=== PATIENT | female | born 1995 | race African-American/Black ===

== ENCOUNTER 2017-10-06 10:46 | Emergency (ER) | payer OTHER ==
[2017-10-06 11:43] LABS: Bilirubin Small (Negative); Blood, Urine Negative (Negative); Clarity CLEAR (Clear); Glucose, Urine (Dipstick) Negative (Negative); Leukocyte Negative (Negative); Nitrite Negative (Negative); Protein, Urine (Dipstick) Trace mg/dL (Neg-Trace); Specific Gravity, Urine 1.029 (1.002-1.036); Urobilinogen 0.2 mg/dL (0.2-1.0); pH, Urine 5.5 (5.0-9.0)
[2017-10-06 12:04] LABS: ALT (SGPT) 7 U/L (8-55); AST (SGOT) 12 U/L (5-34); Albumin 4.6 g/dL (3.5-5.0); Alkaline Phosphatase 49 U/L (40-150); Anion Gap 13 mmol/L (10-20); BUN (Urea Nitrogen) 9 mg/dL (7.0-18.7); Bilirubin, Total 0.5 mg/dL (0.2-1.2); Calc. Creatinine Clearance 0 mL/min (70-130); Calcium 9.8 mg/dL (7.8-10.44); Carbon Dioxide 23 mmol/L (22-29); Chloride 104 mmol/L (98-107); Estimated GFR-MDRD 89; Globulin 3.4 g/dL (2.4-3.5); Glucose 78 mg/dL (70-105); Lipase 12 U/L (8-78); Potassium 3.5 mmol/L (3.5-5.1); Sodium 136 mmol/L (136-145)
[2017-10-06 12:11] LABS: #Lymphocytes 1.9 thou/uL (1.20-3.40); #Monocytes 0.3 thou/uL (0.11-0.59); #Neutrophils 1.7 thou/uL (1.40-6.50); %Basophils 0.7 % (0.0-1.0); %Eosinophils 0.6 % (0.0-10.0); %Lymphocytes 48.2 % (28.0-48.0); %Monocytes 6.6 % (0.0-4.0); %Neutrophils 43.9 % (31.0-61.0); Hemoglobin 14.6 g/dL (12.0-16.0); Mean Corpuscular HGB CONC 33.4 g/dL (32.0-36.0); Mean Platelet Volume 8.3 fL (7.4-10.4); Platelet Count 215 thou/uL (130-400); RBC Distribution Width 10.7 % (11.5-14.5); Red Blood Cell (RBC) Count 4.41 mill/uL (4.00-5.20)
--- NOTE | 2017-10-06 13:10 | ULT ---
ULTRASOUND ABDOMEN LIMITED: (RIGHT LOWER QUADRANT) HISTORY: A 22-year-old female with right lower quadrant abdominal pain and diarrhea. Rule out appendicitis. FINDINGS: The appendix is not visualized. Appendicitis is neither ruled in nor ruled out. IMPRESSION: Nondiagnostic for appendicitis. POS: [facility]
[2017-10-06] MEDS ORDERED: ISOVUE-370 76%-LOCM 1 ML ONE (13:38)
[2017-10-06] MEDS ORDERED: Ketorolac Tromethamine 30 MG/ML VIAL ONE (14:52)
[2017-10-06 15:12] LABS: Pregnancy Test - Urine (BHCG) Negative (Negative); Pregu Control Background? CLEAR/WHITE (CLR/WHITE); Pregu Control Bar Appear? YES (CONTROL BAR); Specific Gravity 1.029 (1.002-1.036)
--- NOTE | 2017-10-06 15:25 | CT ---
CT OF THE ABDOMEN AND PELVIS WITH IV CONTRAST: Date: 10/06/17 INDICATION: Right-sided abdominal pain with nausea and diarrhea. FINDINGS: There is a normal appendix in the right lower quadrant of the abdomen. The bladder, rectum, and perirectal soft tissues are unremarkable. There is a mild amount of free flu id within the pelvis, which is nonspecific. Lung bases are clear. The liver, pancreas, adrenal glands, and kidneys appear within normal limits. The spleen appears with in normal limits. No enlarged lymph nodes are evident. No definite acute osseous abnormality is evident. IMPRESSION: 1. Normal appendix. 2. Mild nonspecific free fluid in the pelvis can be physiologic in nature. POS: [facility]
== END 2017-10-06 15:45 | disposition home or self-care (01) ==
LOC: ERS 10:46
DX: K52.9 Noninfective gastroenteritis and colitis, unspecified (principal)
CPT/HCPCS: 36415; 74177; 76705; 80053; 81003; 81025; 83690; 85025; 96361; 96374; J1885; J2270